=== PATIENT | male | born 1965 | race Caucasian/White ===

== ENCOUNTER 2018-07-24 12:03 | Day surgery (SDC) | payer MEDICARE, SELFPAY ==
--- NOTE | 2018-07-22 08:23 | HP.PCM_ITS ---
History and Physical Date of Admission: 07/24/18 HISTORY AND PHYSICAL ? Linden Almonte 1965 ? REFERRING PHYSICIAN: ??No ref. provider found ? CHIEF COMPLAINT: ??colon consult ? HPI: The patient is a 53 year old male referred for endoscopy. ?Linden notes no history of colon complaints. ?He denies any change in bowel habits, weight shailesh nges, blood in stools, black tarry stools or abdominal pain. ?He notes his father had cancer, but he does not believe this was GI-related. ?The patient ?notes no history of upper GI complaints. ?Linden has not?undergone prior endoscopy. ? Patient is a smoker, states he smokes 3-4 cigarettes per day. ?He drinks 3-4 beers per day. ?His past medical history is significant for epilepsy, which he states is well-controlled. He denies any problems with sedation in the past. ? Patient is scheduled to undergo colonoscopy with MAC at [facility] on 07/24/18. ?The patient denies any significant change to his overall health since his last visit. ?His past medical history, past surgical history, medications and allergies are up to date as of this visit. ? ? PAST MEDICAL HISTORY PAST MEDICAL HISTORY Diagnosis Date ? Alcohol abuse 01/24/2012 ? Depressive disorder, not elsewhere classified ? ? Generalized anxiety disorder ? ? Anxiety, Generalized ? Generalized convulsive epilepsy without mention of intractable epilepsy ? ? Hyperlipidemia 01/20/2011 ? Tobacco use disorder 01/20/2011 ? ? PAST SURGICAL HISTORY PAST SURGICAL HISTORY Procedure Laterality Date ? NONE ? CURRENT MEDICATIONS ? Current Outpatient Prescriptions: fluticasone (FLONASE) 50 mcg/actuation nasal spray USE 2 SPRAYS IN EACH NOSTRIL ONCE DAILY traZODone (DESYREL) 50 mg tablet TAKE 1 TABLET BY MOUTH EVERY DAY AT BEDTIME phenytoin ER (DILANTIN) 100 mg ER capsule TAKE 2 CAPS TWICE A DAY ON MONDAYS - FRIDAYS ON SAT AND SUN TAKE 2 CAPS IN AM AND 1 CAP IN PM multivitamin tablet Take 1 tablet by mouth once daily. Milk Thistle 140 mg Cap Take 1 capsule by mouth once daily. Takes for liver. ? No current facility-administered medications for this visit. ? ALLERGIES: Seasonal Allergies ? PERSONAL HISTORY: SOCIAL HISTORY Social History ??Marital status: ?Spouse name: ?Years of education: ?Number of children: 1 ? Occupational History Occupation ?Employer ?Comment ? 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 Social History Main Topics ??Smoking status: Current Every Day Smoker ?Packs/day: 1.00 ?Years: 11.00 ?Types: Cigarettes ??Smokeless tobacco: Never Used ?Comment: 1/2 ppd currently ??Alcohol use: Yes ?36.0 oz/week ?Cans of Beer (12oz): 24 per week ?Comment: CAGE neg. ??Drug use: No ? FAMILY HISTORY: FAMILY HISTORY FAMILY HISTORY Problem Relation Age of Onset ? Cancer Father ?Bone cancer, ? Arthritis Mother ?Rheumatoid Arthritis ? REVIEW OF SYMPTOMS: ??The review of systems data was entered by the nurse and reviewed by me ? Nursing Notes: Haley Ugarte LPN ?07/17/2018 ?3:26 PM ?Signed REVIEW OF SYSTEMS: ?General:???The patient denies fatigue, denies weight loss, denies weight gain, denies feeling hot, and denies feelings of cold. ?Eyes: ?The patient denies glaucoma, denies eye injury/surgery, does not wear glasses or contacts. ?Ear/Nose/Throat: ?The patient NOTES allergies, denies hayfever, denies ear infections, and denies bloody noses. ?Cardiovascular: ?The patient denies chest pain, denies heart disease, denies high blood pressure,denies cardiac stent, denies prior heart attack, denies irregular heart beat, denies high cholesterol, ?denies poor circulation, denies heart failure, other cardiac issues, denies claudication, denies cold feet, denies peripheral arterial stent. ?Respiratory: ?The patient denies tuberculosis, denies pneumonia, NOTES frequent cough, denies pulmonary embolism, denies shortness of breath, and denies coughing up blood. ?Gastrointestinal: ?The patient denies difficulty swallowing, denies acid reflux, denies ulcers, denies vomiting, denies jaundice/hepatitis, denies gallbladder problems, denies black or tarry stools, denies hemorrhoids, denies bleeding from rectum, denies diverticulitis, denies constipation, denies diarrhea, denies loss of stool control, and denies hernias. ?Kidney/Bladder: ?The patient denies kidney stones, denies urine infections, and denies bloody urine. ?Skin: ?The patient denies a history of skin cancer, denies bleeding/changing moles, and NOTES a history of skin rash. ?Neurologic: ?The patient NOTES a history of epilepsy/convulsions, denies headaches, denies head/spinal injuries, and denies stroke/TIA. ?Psychiatric: ?The patient denies psychiatric medications, denies depression, and denies voices, denies substance abuse. ?Endocrine: ?The patient denies thyroid disorders, denies diabetes, and denies hormonal problems. ?Hematologic: ?The patient denies a history of bruising, denies bleeding, and denies anemia, denies blood clots. ?Infections: ?The patient denies a history of measles and mumps, denies rheumatic fever, and denies sexually transmitted diseases. ?Musculoskeletal: ?The patient denies back pain/injury, denies back problems, denies sciatica, denies knee/foot trouble, NOTES arthritis, or denies gout. ? ? When was patient's last Mammogram screening? N/A ? ?Last Colonoscopy: ?N/A ? ? PHYSICAL EXAMINATION: ? General: ?The patient is 53 year old male, well nourished, well hydrated in no acute distress. ?The patient is oriented to time, place, and person. ? VITALS: Blood pressure 150/76, pulse 70, weight 67.6 kg (149 lb).?Body mass index is 22.66 kg/m?.? ? HEENT: ?Normal cephalic, ataumatic, pupils are equally round, sclera are anicteric, mucous membranes are moist, oropharynx is clear. ?Neck has no masses, asymmetry or lymphadenopathy. ?Thyroid is unremarkable. ? Respiratory: ?Clear to auscultation and percussion. ?Normal respiratory excursion and pattern. ? Cardiac: ?Examination is regular rate and rhythm. ? Abdominal exam: ?Soft, nontender, ?with no palpable masses. ?No hepatosplenomegaly. ?No palpable hernias. ? Rectal exam: exam deferred ? Extremities: ?no clubbing, cyanosis or edema. ?No adenopathy. ? Other: ? LABORATORY VALUES: As Noted ? RADIOLOGIC STUDIES: ?As Noted ? Assessment ? IMPRESSION: update H&P for screening colonoscopy ? PLAN: ?Proceed with colonoscopy. ?Clear liquid diet and prep instructions reviewed.??We discussed the risks and benefits of the planned endoscopy. ?I have informed the patient that complications can occur including failure to complete the endoscopy and perforation. ?The patient had the opportunity to ask questions concerning the planned endoscopy. ?My staff has also explained the procedure to the patient in understandable terms and has given the patient printed material concerning the procedure. ?The patient freely consents to surgery. ? I plan to use golytely bowel preparation for endoscopy-patient states already has picked up Rx ? I plan for monitored anesthetic care. ? Diagnoses: (Z12.11) Encounter for screening for malignant neoplasm of colon ?(primary encounter diagnosis) ? My findings have been communicated to ?Kali?via shared medical record. ?This note will be forwarded to Kaiser Bass MD. ?? Return to Clinic: The patient is instructed to follow-up with me 1 week post operatively. ? ? Geeta Still PA-C
[2018-07-24 12:38] VITALS: BP 127/90; PULSE 82; RESP 16; TEMP 36.6; O2SAT 100; BMI 24.4
[2018-07-24 14:20] VITALS: BP 127/90; BP 138/86; PULSE 67; RESP 16; TEMP 36.2; O2SAT 100
--- NOTE | 2018-07-24 14:20 | OP.ENDO_ITS ---
Patient Name: Pancho Almonte Procedure Date: 07/24/2018 1:50 PM Date of : 1965 Age: 53 Procedure: Colonoscopy Indications: Screening for colorectal malignant neoplasm Providers: Christian Wahl MD Medicines: Monitored Anesthesia Care Patient Profile: This is a 53 year old male. Refer to note in patient chart for documentation of history and physical. Last Colonoscopy: none. The patient's first colonoscopy is today. Complications: No immediate complications. Procedure: Pre-Anesthesia Assessment: - Prior to the procedure, a History and Physical was performed, and patient medications and allergies were reviewed. The patient is competent. The risks and benefits of the procedure and the sedation options and risks were discussed with the patient. All questions were answered and informed consent was obtained. Patient identification and proposed procedure were verified by the physician, the nurse and the anesthesiologist in the procedure room. Mental Status Examination: alert and oriented. Airway Examination: normal oropharyngeal airway and neck mobility. Respiratory Examination: clear to auscultation. CV Examination: normal. Prophylactic Antibiotics: The patient does not require prophylactic antibiotics. Prior Anticoagulants: The patient has taken no previous anticoagulant or antiplatelet agents. ASA Grade Assessment: III - A patient with severe systemic disease. After reviewing the risks and benefits, the patient was deemed in satisfactory condition to undergo the procedure. The anesthesia plan was to use monitored anesthesia care (MAC). Immediately prior to administration of medications, the patient was re-assessed for adequacy to receive sedatives. The heart rate, respiratory rate, oxygen saturations, blood pressure, adequacy of pulmonary ventilation, and response to care were monitored throughout the procedure. The physical status of the patient was re-assessed after the procedure. After I obtained informed consent, the scope was passed under direct vision. Throughout the procedure, the patient's blood pressure, pulse, and oxygen saturations were monitored continuously. The pediatric colonoscope was introduced through the anus and advanced to 4 cm into the ileum. The colonoscopy was performed without difficulty. The patient tolerated the procedure well. The quality of the bowel preparation was good. Scope In: 2:01:59 PM Scope Withdrawal Time 0 hours 6 minutes 29 seconds Scope Out: 2:14:18 PM Total Procedure Duration Time 0 hours 12 minutes 19 seconds Findings: The perianal and digital rectal examinations were normal. The entire examined colon appeared normal on direct and retroflexion views. Impression: - The entire examined colon is normal on direct and retroflexion views. - No specimens collected. Recommendation: - Discharge patient to home. - Resume previous diet. - Continue present medications. - Repeat colonoscopy in 10 years for screening purposes. Procedure Code(s): --- Professional --- 05663, Colonoscopy, flexible; diagnostic, including collection of specimen(s) by brushing or washing, when performed (separate procedure) CPT copyright 2017 [employer]. All rights reserved. The codes documented in this report are preliminary and upon bottle caser review may be revised to meet current compliance requirements. Christian Wahl MD 07/24/2018 2:19:51 PM This report has been signed electronically. Number of Addenda: 0 Note Initiated On: 07/24/2018 1:50 PM
[2018-07-24 14:25] VITALS: BP 119/84; BP 127/90; PULSE 63; RESP 16; O2SAT 100
[2018-07-24 14:30] VITALS: BP 127/90; BP 135/87; PULSE 61; RESP 16; O2SAT 100
[2018-07-24 14:35] VITALS: BP 127/90; BP 130/90; PULSE 61; RESP 16; TEMP 36.5; O2SAT 100
[2018-07-24 15:00] VITALS: BP 127/90
== END 2018-07-24 15:01 | disposition home or self-care (01) ==
LOC: EN 12:06 → AC 12:24
PROVIDERS: Family Provider Internal Medicine; PCP Internal Medicine; Referring Provider Surgery; Visit Provider Surgery
PROC: 0DJD8ZZ Inspection of Lower Intestinal Tract, Via Natural or Artificial Opening Endoscopic (ICD-10-PCS; CPT 45378; principal; 2018-07-24 13:25)
DX: Z12.11 Encounter for screening for malignant neoplasm of colon (principal); G40.409 Other generalized epilepsy and epileptic syndromes, not intractable, without status epilepticus; F41.1 Generalized anxiety disorder; F32.9 Major depressive disorder, single episode, unspecified; F17.210 Nicotine dependence, cigarettes, uncomplicated; Z79.899 Other long term (current) drug therapy
CPT/HCPCS: G0121; J7120